=== PATIENT | female | born 1955 | race Caucasian/White ===

== ENCOUNTER → 2020-08-10 | Outpatient (CLI) | payer SELFPAY ==
[~2020-08-10] MED LIST: ATOR40TA75; CLOP75TA2; FERR325T18; FURO20TA2; HYDR25TAB; LOSA100T50; METF500T13
== END ==
LOC: M LABSMTC 09:30
PROVIDERS: ATTEND Anesthesiology
DX: Z01.812 Encounter for preprocedural laboratory examination (principal); Z20.828 Contact with and (suspected) exposure to other viral communicable diseases

== ENCOUNTER 2020-08-14 13:30 | Day surgery (SDC) | payer MEDICAID ==
[~2020-08-14] VITALS: Ht 165.1 cm; Wt 112.5 kg
[~2020-08-14 13:30] MED LIST changes: +NS 1,000 ML IV ONE
[2020-08-14] MEDS ORDERED: propofoL 200 MG/20 ML VIAL As Ordered ONE (16:08)
[2020-08-14] MEDS ORDERED: LIDOCAINE 2% 100MG/5ML SDV (FOR ANES.) As Ordered ONE (16:08)
--- NOTE | 2020-08-14 16:36 | ROOR ---
Patient Name: Francisca Talbert Procedure Date: 08/14/2020 3:31 PM Date of : 1955 Age: 64 Room: [facility] Gender: Female Note Status: Finalized Procedure: Upper GI endoscopy Indications: Iron deficiency anemia Providers: Cameron Hernández MD Referring MD: David Xavier DO Requesting Provider: Medicines: Monitored Anesthesia Care Complications: No immediate complications. Procedure: Pre-Anesthesia Assessment: - Prior to the procedure, a History and Physical was performed, and patient medications and allergies were reviewed. The patient is competent. The risks and benefits of the procedure and the sedation options and risks were discussed with the patient. All questions were answered and informed consent was obtained. Patient identification and proposed procedure were verified by the physician, the nurse and the anesthesiologist in the procedure room. Mental Status Examination: alert and oriented. Airway Examination: normal oropharyngeal airway and neck mobility. Respiratory Examination: clear to auscultation. CV Examination: normal. Prophylactic Antibiotics: The patient does not require prophylactic antibiotics. Prior Anticoagulants: The patient has taken Plavix (clopidogrel), last dose was 1 day prior to procedure. ASA Grade Assessment: III - A patient with severe systemic disease. After reviewing the risks and benefits, the patient was deemed in satisfactory condition to undergo the procedure. The anesthesia plan was to use monitored anesthesia care (MAC). Immediately prior to administration of medications, the patient was re-assessed for adequacy to receive sedatives. The heart rate, respiratory rate, oxygen saturations, blood pressure, adequacy of pulmonary ventilation, and response to care were monitored throughout the procedure. The physical status of the patient was re-assessed after the procedure. The Endoscope was introduced through the mouth, and advanced to the second part of duodenum. The upper GI endoscopy was accomplished without difficulty. The patient tolerated the procedure well. Findings: The examined esophagus was normal. A medium-sized, polypoid, non-circumferential mass with no bleeding and stigmata of recent bleeding was found in the gastric body. One ligature (endoloop) was successfully placed. This was done to prevent bleeding. The polyp was removed with a hot snare. Resection and retrieval were complete. To close a defect after polypectomy, three hemostatic clips were successfully placed. There was no bleeding at the end of the procedure. Verification of patient identification for the specimen was done by the physician and nurse using the patient's name, date and medical record number. Estimated blood loss was minimal. The duodenal bulb and second portion of the duodenum were normal. Impression: - Normal esophagus. 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 Complete removal was accomplished. SKIP. Clips were placed. - Normal duodenal bulb and second portion of the duodenum. Recommendation: - Patient has a contact number available for emergencies. The signs and symptoms of potential delayed complications were discussed with the patient. Return to normal activities tomorrow. Written discharge instructions were provided to the patient. - High fiber diet. - Continue present medications. - Resume Plavix (clopidogrel) at prior dose in 1 week. Refer to primary physician for further adjustment of therapy. - Use Protonix (pantoprazole) 40 mg PO twice daily - to be taken in morning (1/2 hour before breakfast) and at bedtime ( atleast 3 hours after last meal) for 6 weeks. - Await pathology results. - Repeat upper endoscopy in 3 months to check healing, for retreatment and for surveillance based on pathology results. - Return to GI clinic in [facility] (address [address], [address], [place], [address]) in 4 -- 6 weeks. Please call GI clinic @ [phone] for apppointment date and time. - Return to primary care physician. Procedure Code(s): --- Professional --- 53140, 59, Esophagogastroduodenoscopy, flexible, transoral; with control of bleeding, any method 71216, 59, Esophagogastroduodenoscopy, flexible, transoral; with removal of tumor(s), polyp(s), or other lesion(s) by snare technique Diagnosis Code(s): --- Professional --- D13.1, Benign neoplasm of stomach D50.9, Iron deficiency anemia, unspecified CPT copyright 2019 [employer]. All rights reserved. The codes documented in this report are preliminary and upon feed grinder review may be revised to meet current compliance requirements. Cameron Hernández MD Cameron Hernández MD 08/14/2020 4:35:35 PM Electronically signed by Cameron Hernández MD Number of Addenda: 0 Note Initiated On: 08/14/2020 3:31 PM Estimated Blood Loss: Estimated blood loss was minimal.
[2020-08-14 16:50] VITALS: BP 182/90
--- NOTE | 2020-08-14 17:04 | ROOR ---
Patient Name: Francisca Talbert Procedure Date: 08/14/2020 3:32 PM Date of : 1955 Age: 64 Room: [facility] Gender: Female Note Status: Finalized Procedure: Colonoscopy Indications: Iron deficiency anemia Providers: Cameron Hernández MD Referring MD: David Xavier DO Requesting Provider: Medicines: Monitored Anesthesia Care Complications: No immediate complications. Procedure: Pre-Anesthesia Assessment: - Prior to the procedure, a History and Physical was performed, and patient medications and allergies were reviewed. The patient is competent. The risks and benefits of the procedure and the sedation options and risks were discussed with the patient. All questions were answered and informed consent was obtained. Patient identification and proposed procedure were verified by the physician, the nurse and the anesthesiologist in the procedure room. Mental Status Examination: alert and oriented. Airway Examination: normal oropharyngeal airway and neck mobility. Respiratory Examination: clear to auscultation. CV Examination: normal. Prophylactic Antibiotics: The patient does not require prophylactic antibiotics. Prior Anticoagulants: The patient has taken no previous anticoagulant or antiplatelet agents. ASA Grade Assessment: II - A patient with mild systemic disease. After reviewing the risks and benefits, the patient was deemed in satisfactory condition to undergo the procedure. The anesthesia plan was to use monitored anesthesia care (MAC). Immediately prior to administration of medications, the patient was re-assessed for adequacy to receive sedatives. The heart rate, respiratory rate, oxygen saturations, blood pressure, adequacy of pulmonary ventilation, and response to care were monitored throughout the procedure. The physical status of the patient was re-assessed after the procedure. The Colonoscope was introduced through the anus and advanced to the terminal ileum, with identification of the appendiceal orifice and IC valve. The colonoscopy was performed without difficulty. The patient tolerated the procedure well. The quality of the bowel preparation was good. The terminal ileum, ileocecal valve, appendiceal orifice, and rectum were photographed. Scope insertion time was 2 minutes. Scope withdrawal time was 6 minutes. The total duration of the procedure was 12 minutes. Findings: The perianal and digital rectal examinations were normal. Pertinent negatives include normal sphincter tone. The terminal ileum appeared normal. Multiple small and large-mouthed diverticula were found from rectum to ascending colon. There was no evidence of diverticular bleeding. Non-bleeding external and internal hemorrhoids were found during retroflexion. The hemorrhoids were medium-sized. Impression: - The examined portion of the ileum was normal. - Severe diverticulosis from rectum to ascending colon. There was no evidence of diverticular bleeding. - Non-bleeding external and internal hemorrhoids. - No specimens collected. Recommendation: - Patient has a contact number available for emergencies. The signs and symptoms of potential delayed complications were discussed with the patient. Return to normal activities tomorrow. Written discharge instructions were provided to the patient. - High fiber diet. - Continue present medications. - Await pathology results. - Repeat colonoscopy in 10 years for screening purposes. - Return to GI clinic in [facility] (address [address], [address], [place], [facility]) in 4 -- 6 weeks. Please call GI clinic @ [phone] for apppointment date and time. - Follow the recommendations as per the other procedure note. - Return to primary care physician. Procedure Code(s): --- Professional --- 78638, Colonoscopy, flexible; diagnostic, including collection of specimen(s) by brushing or washing, when performed (separate procedure) Diagnosis Code(s): --- Professional --- K64.8, Other hemorrhoids D50.9, Iron deficiency anemia, unspecified K57.30, Diverticulosis of large intestine without perforation or abscess without bleeding CPT copyright 2019 [employer]. All rights reserved. The codes documented in this report are preliminary and upon recreation teacher review may be revised to meet current compliance requirements. Cameron Hernández MD Cameron Hernández MD 08/14/2020 5:04:23 PM Electronically signed by Cameron Hernández MD Number of Addenda: 0 Note Initiated On: 08/14/2020 3:32 PM Estimated Blood Loss: Estimated blood loss was minimal.
== END 2020-08-14 17:04 | disposition home or self-care (01) ==
LOC: M OPP 13:30
PROVIDERS: ATTEND Internal Medicine Gastroenterology
DX: K57.30 Diverticulosis of large intestine without perforation or abscess without bleeding (principal); K64.8 Other hemorrhoids; D50.9 Iron deficiency anemia, unspecified; D13.1 Benign neoplasm of stomach; E11.9 Type 2 diabetes mellitus without complications; Z79.82 Long term (current) use of aspirin; Z79.84 Long term (current) use of oral hypoglycemic drugs; Z79.899 Other long term (current) drug therapy; Z91.040 Latex allergy status; Z86.73 Personal history of transient ischemic attack (TIA), and cerebral infarction without residual deficits

== ENCOUNTER → 2020-11-29 | Outpatient (CLI) | payer MEDICAID ==
[~2020-11-29] MED LIST changes: -ATOR40TA75; +ATOR40TA75 PO; -CLOP75TA2; +CLOP75TA2 PO; -FERR325T18; +FERR325T18 PO; +HYDR-3490 PO; -HYDR25TAB; +JANU25TA PO; -LOSA100T50; +LOSA100T50 PO; -METF500T13; +METF500T13 PO; -NS 1,000 ML IV ONE; +PANT40TA29 PO
== END ==
LOC: M LABSMTC 09:07
PROVIDERS: ATTEND Anesthesiology
DX: Z01.818 Encounter for other preprocedural examination (principal); Z11.52 Encounter for screening for COVID-19

== ENCOUNTER 2020-12-04 08:09 | Day surgery (SDC) | payer MEDICAID ==
[~2020-12-04] VITALS: Ht 165.1 cm; Wt 115.2 kg
[~2020-12-04 08:09] MED LIST changes: +NS 1,000 ML IV ONE
[2020-12-04] MEDS ORDERED: propofoL 200 MG/20 ML VIAL As Ordered ONE ×2 (09:41→09:53)
[2020-12-04] MEDS ORDERED: LIDOCAINE 2% 100MG/5ML SDV (FOR ANES.) As Ordered ONE (09:41)
--- NOTE | 2020-12-04 10:25 | ROOR ---
Patient Name: Francisca Talbert Procedure Date: 12/04/2020 9:40 AM Date of : 1955 Age: 65 Room: [facility] Gender: Female Note Status: Finalized Procedure: Upper GI endoscopy Indications: For therapy of gastric polyps Providers: Cameron Hernández MD Referring MD: David Xavier DO Requesting Provider: Medicines: Monitored Anesthesia Care Complications: No immediate complications. Procedure: Pre-Anesthesia Assessment: - Prior to the procedure, a History and Physical was performed, and patient medications and allergies were reviewed. The patient is competent. The risks and benefits of the procedure and the sedation options and risks were discussed with the patient. All questions were answered and informed consent was obtained. Patient identification and proposed procedure were verified by the physician, the nurse and the anesthesiologist in the procedure room. Mental Status Examination: alert and oriented. Airway Examination: normal oropharyngeal airway and neck mobility. Respiratory Examination: clear to auscultation. CV Examination: normal. Prophylactic Antibiotics: The patient does not require prophylactic antibiotics. Prior Anticoagulants: The patient has taken Plavix (clopidogrel), last dose was 7 days prior to procedure. ASA Grade Assessment: III - A patient with severe systemic disease. After reviewing the risks and benefits, the patient was deemed in satisfactory condition to undergo the procedure. The anesthesia plan was to use monitored anesthesia care (MAC). Immediately prior to administration of medications, the patient was re-assessed for adequacy to receive sedatives. The heart rate, respiratory rate, oxygen saturations, blood pressure, adequacy of pulmonary ventilation, and response to care were monitored throughout the procedure. The physical status of the patient was re-assessed after the procedure. The Endoscope was introduced through the mouth, and advanced to the second part of duodenum. The upper GI endoscopy was accomplished without difficulty. The patient tolerated the procedure well. Findings: The examined esophagus was normal. Three 10 to 15 mm sessile polyps with no bleeding and stigmata of recent bleeding were found on the greater curvature of the stomach and in the gastric antrum. These polyps were removed with a hot snare. Resection and retrieval were complete. To close a defect after polypectomy, two hemostatic clips were successfully placed. There was no bleeding at the end of the procedure. Verification of patient identification for the specimen was done by the physician and nurse using the patient's name and date. Estimated blood loss was minimal. Patchy moderately congested mucosa was found in the gastric antrum. The duodenal bulb and second portion of the duodenum were normal. Impression: - Normal esophagus. - Three gastric polyps. Resected and retrieved. Clips were placed. - Congestive gastropathy. - Normal duodenal bulb and second portion of the duodenum. Recommendation: - Patient has a contact number available for emergencies. The signs and symptoms of potential delayed complications were discussed with the patient. Return to normal activities tomorrow. Written discharge instructions were provided to the patient. - High fiber diet. - Continue present medications. - Use Protonix (pantoprazole) 40 mg PO twice daily - to be taken in morning (1/2 hour before breakfast) and at bedtime ( atleast 3 hours after last meal) for 8 weeks. - Use sucralfate suspension 1 gram PO BID for 4 weeks. - Resume Plavix (clopidogrel) at prior dose tomorrow. Refer to primary physician for further adjustment of therapy. - Await pathology results. - Repeat upper endoscopy in 6 months for surveillance based on pathology results. - Telephone GI clinic for pathology results in 2 weeks. - Return to primary care physician. Procedure Code(s): --- Professional --- 98783, Esophagogastroduodenoscopy, flexible, transoral; with removal of tumor(s), polyp(s), or other lesion(s) by snare technique Diagnosis Code(s): --- Professional --- K31.7, Polyp of stomach and duodenum K31.89, Other diseases of stomach and duodenum CPT copyright 2019 [employer]. All rights reserved. The codes documented in this report are preliminary and upon revenue cycle specialist review may be revised to meet current compliance requirements. Cameron Hernández MD Cameron Hernández MD 12/04/2020 10:24:58 AM Electronically signed by Cameron Hernández MD Number of Addenda: 0 Note Initiated On: 12/04/2020 9:40 AM Estimated Blood Loss: Estimated blood loss was minimal.
[2020-12-04 11:22] VITALS: BP 190/94
== END 2020-12-04 11:24 | disposition home or self-care (01) ==
LOC: M OPP 08:09
PROVIDERS: ATTEND Internal Medicine Gastroenterology
DX: K31.7 Polyp of stomach and duodenum (principal); K31.89 Other diseases of stomach and duodenum; E11.9 Type 2 diabetes mellitus without complications; Z79.82 Long term (current) use of aspirin; Z79.84 Long term (current) use of oral hypoglycemic drugs; Z79.899 Other long term (current) drug therapy; Z87.891 Personal history of nicotine dependence

== ENCOUNTER 2022-06-14 16:49 | Inpatient (IN) | payer MEDICAID, OTHER ==
[~2022-06-14] VITALS: Ht 165.1 cm; Wt 118.5 kg
[~2022-06-14 16:49] MED LIST changes: +LOSA100T45 PO; -LOSA100T50 PO; -NS 1,000 ML IV ONE
[2022-06-14 19:40] LABS: HEMATOCRIT 40.7 % (36.0-47.0); HEMOGLOBIN 12.5 g/dl (12.0-15.5); MEAN CORPUSCULAR HEMOGLOBIN 29.3 pg (27.0-33.0); MEAN CORPUSCULAR HGB CONC 30.7 g/dl (32.0-36.5); MEAN CORPUSCULAR VOLUME 95.3 fl (80.0-96.0); PLATELET COUNT, AUTOMATED 736 10^3/uL (150-450); RED BLOOD COUNT 4.27 10^6/uL (4.00-5.40); WHITE BLOOD COUNT 14.4 10^3/uL (4.0-10.0)
[2022-06-14 19:47] LABS: RSV AMPLIFICATION NEGATIVE (NEGATIVE)
[2022-06-14 19:55] LABS: ACETAMINOPHEN LEVEL < 2.0 UG/ML (10.0-30.0); ALBUMIN 3.4 GM/DL (3.2-5.2); ALT/SGPT 69 U/L (12-78); BILIRUBIN,DIRECT 0.3 MG/DL (0.0-0.2); BILIRUBIN,TOTAL 0.6 MG/DL (0.2-1.0); BLOOD UREA NITROGEN 29 MG/DL (7-18); CALCIUM LEVEL 9.6 MG/DL (8.8-10.2); CARBON DIOXIDE LEVEL 15 MEQ/L (21-32); CHLORIDE LEVEL 109 MEQ/L (98-107); CREATININE FOR GFR 1.09 MG/DL (0.55-1.30); ETHYL ALCOHOL (ETHANOL) < 0.003 % (0.000-0.010); GLOMERULAR FILTRATION RATE 53.8 (>45); GLUCOSE, FASTING 119 MG/DL (70-100); POTASSIUM SERUM 5.1 MEQ/L (3.5-5.1); SALICYLATE LEVEL 2.4 MG/DL (5.0-30.0); SODIUM LEVEL 139 MEQ/L (136-145); TOTAL PROTEIN 7.2 GM/DL (6.4-8.2)
[2022-06-15 01:28] LABS: AMPHETAMINES LEVEL URINE NEGATIVE (NEGATIVE); BARBITURATES URINE NEGATIVE (NEGATIVE); BENZODIAZEPINES URINE NEGATIVE (NEGATIVE); CANNABINOIDS URINE NEGATIVE (NEGATIVE); COCAINE METABOLITE URINE NEGATIVE (NEGATIVE); METHADONE URINE NEGATIVE (NEGATIVE); OPIATES URINE NEGATIVE (NEGATIVE); PHENCYCLIDINE URINE NEGATIVE (NEGATIVE)
[2022-06-15] MEDS ORDERED: TORS20TA2 PO (07:46)
[2022-06-15] MEDS ORDERED: BASA100I SC (07:46)
[2022-06-15] MEDS ORDERED: ASPI-226 PO (07:46)
[2022-06-15] MEDS ORDERED: SPIR-10 PO (07:46)
[2022-06-15] MEDS ORDERED: MAGN500T2 PO (07:46)
[2022-06-15] MEDS ORDERED: TORSEMIDE 20 MG TAB PO SCH (09:00)
[2022-06-15] MEDS ORDERED: SPIRONOLACTONE 12.5MG PER 1/2 TABLET PO SCH (09:00)
[2022-06-15] MEDS ORDERED: FERROUS SULFATE 325MG TAB PO SCH (09:00)
[2022-06-15] MEDS ORDERED: LOSARTAN 50MG TABLET PO SCH (09:00)
[2022-06-15] MEDS ORDERED: CLOPIDOGREL 75 MG TAB PO SCH (09:00)
[2022-06-15] MEDS ORDERED: metFORMIN (GLUCOPHAGE) 500MG TAB PO SCH ×2 (09:00→18:00)
[2022-06-15] MEDS ORDERED: ASPIRIN 81 MG CHEW TABLET PO SCH (09:00)
[2022-06-15] MEDS ORDERED: HOME MED LIST COMPLETE! XX SCH (11:30)
[2022-06-15 11:31] LABS: CALCIUM LEVEL 9.5 MG/DL (8.8-10.2); CREATININE FOR GFR 1.43 MG/DL (0.55-1.30); GLOMERULAR FILTRATION RATE 39.3 (>45); POTASSIUM SERUM 5.5 MEQ/L (3.5-5.1)
[2022-06-15] MEDS ORDERED: NS 1,000 ML IV ONE ×2 (11:50→19:05)
[2022-06-15 12:36] LABS: VENOUS BASE EXCESS -13.2 (-2.0-2.0); VENOUS HCO3 13.5 MEQ/L (23.0-27.0); VENOUS O2 SATURATION 90.2 % (60.0-80.0); VENOUS PARTIAL PRESSURE CO2 33.7 mmHg (38.0-50.0); VENOUS PARTIAL PRESSURE O2 65.8 mmHg (30.0-50.0); VENOUS PH 7.219 UNITS (7.330-7.430); VENOUS STANDARD HCO3 14.1 MEQ/L; VENOUS TOTAL CO2 14.5 MEQ/L (24.0-28.0)
[2022-06-15] MEDS ORDERED: NS 1,000 ML IV SCH (13:40)
[2022-06-15] MEDS ORDERED: GLUCAGON INJ 1MG VIAL SC PRN (13:40)
[2022-06-15] MEDS ORDERED: SOD POLYSTYRENE SULFONATE SUSP 15GM 60ML UD PO ONE (13:40)
[2022-06-15] MEDS ORDERED: GLUCOSE 4GM CHEW TABLET PO PRN (13:40)
[2022-06-15] MEDS ORDERED: DEXTROSE 50% 50 ML SYRINGE IV PRN (13:40)
[2022-06-15] MEDS: HEPARIN SOD (PORCINE) 5000UNITS/ML 1ML VIAL/SYRINGE SC SCH ×2 (14:22→22:41)
[2022-06-15 15:28] LABS: APPEARANCE, URINE MANUAL CLEAR (CLEAR); COLOR, URINE MANUAL YELLOW (YELLOW)
[2022-06-15 15:29] LABS: BILIRUBIN, URINE MANUAL NEGATIVE (NEGATIVE); BLOOD URINE MANUAL NEGATIVE (NEGATIVE); GLUCOSE, URINE (UA) MANUAL NEGATIVE (NEGATIVE); KETONE, URINE MANUAL 2+ mg/dL (NEGATIVE); LEUKOCYTE ESTERASE, URINE MAN NEGATIVE (NEGATIVE); NITRITE, URINE MANUAL NEGATIVE (NEGATIVE); PROTEIN, URINE MANUAL t mg/dL (NEGATIVE); UROBILINOGEN, URINE MANUAL NORMAL (NORMAL)
[2022-06-15 15:44] LABS: SQUAMOUS EPITHELIAL CELL URINE SMALL AMOUNT /hpf (SMALL AMT)
[2022-06-15 15:45] LABS: BACTERIA, URINE MOD AMOUNT; RBC, URINE 0-1 /hpf (0-3)
[2022-06-15 16:23] LABS: OSMOLALITY URINE 396 MOSM/KG (50-1400)
[2022-06-15 16:38] LABS: CHLORIDE,RANDOM URINE 23 MEQ/L; POTASSIUM RANDOM URINE 28.7 MEQ/L; SODIUM,RANDOM URINE < 10 MEQ/L
[2022-06-15] MEDS: D5W/0.9% SODIUM CHLORIDE 1,000 ML IV SCH (16:52)
[2022-06-15 17:06] LABS: VENOUS BASE EXCESS -12.7 (-2.0-2.0); VENOUS HCO3 13.4 MEQ/L (23.0-27.0); VENOUS PARTIAL PRESSURE CO2 31.6 mmHg (38.0-50.0); VENOUS PARTIAL PRESSURE O2 184.2 mmHg (30.0-50.0); VENOUS PH 7.244 UNITS (7.330-7.430); VENOUS STANDARD HCO3 14.5 MEQ/L; VENOUS TOTAL CO2 14.3 MEQ/L (24.0-28.0)
[2022-06-15 17:40] LABS: CALCIUM LEVEL 9.2 MG/DL (8.8-10.2); CREATININE FOR GFR 1.71 MG/DL (0.55-1.30); MAGNESIUM LEVEL 2.1 MG/DL (1.8-2.4)
[2022-06-15] MEDS ORDERED: LEVEMIR (INSULIN DETEMIR) 1 UNITS/0.01ML SC SCH (18:00)
[2022-06-15] MEDS: INSULIN LISPRO (NovoLOG) PER UNIT SC SCH ×2 (18:30→21:00)
[2022-06-15] MEDS ORDERED: ATORVASTATIN 20 MG TAB PO SCH (21:00)
[2022-06-15 21:48] LABS: VENOUS BASE EXCESS -11.8 (-2.0-2.0); VENOUS HCO3 15.7 MEQ/L (23.0-27.0); VENOUS O2 SATURATION 58.9 % (60.0-80.0); VENOUS PARTIAL PRESSURE CO2 41.7 mmHg (38.0-50.0); VENOUS PARTIAL PRESSURE O2 34.3 mmHg (30.0-50.0); VENOUS PH 7.194 UNITS (7.330-7.430); VENOUS STANDARD HCO3 14.6 MEQ/L
[2022-06-15 22:28] LABS: CALCIUM LEVEL 8.7 MG/DL (8.8-10.2); CREATININE FOR GFR 1.81 MG/DL (0.55-1.30); POTASSIUM SERUM 4.8 MEQ/L (3.5-5.1)
[2022-06-15] MEDS: ATORVASTATIN 20 MG TAB PO SCH (22:40)
[2022-06-15] MEDS: MAGNESIUM OXIDE 400MG TAB (MAG-OX) PO SCH (22:40)
[2022-06-15] MEDS: ACETAMINOPHEN TAB 650MG DOSE (2X325MG) PO PRN (23:01)
[2022-06-15] MEDS: LEVEMIR (INSULIN DETEMIR) 1 UNITS/0.01ML SC SCH (23:15)
[2022-06-16] MEDS ORDERED: SODIUM BICARBONATE 8.4% INJ 50 ML SYRINGE IV STA (00:17)
[2022-06-16] MEDS: D5W/0.9% SODIUM CHLORIDE 1,000 ML IV SCH ×3 (04:42→23:17)
[2022-06-16] MEDS: HEPARIN SOD (PORCINE) 5000UNITS/ML 1ML VIAL/SYRINGE SC SCH ×3 (06:18→20:46)
[2022-06-16 07:29] LABS: VENOUS BASE EXCESS -9.7 (-2.0-2.0); VENOUS HCO3 16.2 MEQ/L (23.0-27.0); VENOUS O2 SATURATION 97.1 % (60.0-80.0); VENOUS PARTIAL PRESSURE CO2 35.7 mmHg (38.0-50.0); VENOUS PARTIAL PRESSURE O2 110.4 mmHg (30.0-50.0); VENOUS PH 7.275 UNITS (7.330-7.430); VENOUS STANDARD HCO3 16.6 MEQ/L; VENOUS TOTAL CO2 17.3 MEQ/L (24.0-28.0)
[2022-06-16 07:38] LABS: BASO % 0.4 % (0.0-1.0); EOS # 0.1 10^3/uL (0.0-0.5); EOS % 0.8 % (0.0-3.0); HEMATOCRIT 32.6 % (36.0-47.0); LYMPH # 1.3 10^3/uL (1.5-5.0); LYMPH % 13.1 % (24.0-44.0); MEAN CORPUSCULAR HEMOGLOBIN 29.5 pg (27.0-33.0); MEAN CORPUSCULAR HGB CONC 30.7 g/dl (32.0-36.5); MEAN CORPUSCULAR VOLUME 96.2 fl (80.0-96.0); MONO % 9.8 % (2.0-8.0); NEUTROPHILS # 7.5 10^3/uL (1.5-8.5); NEUTROPHILS % 74.2 % (36.0-66.0); PLATELET COUNT, AUTOMATED 482 10^3/uL (150-450); RED BLOOD COUNT 3.39 10^6/uL (4.00-5.40)
[2022-06-16 08:00] VITALS: BP 103/47
[2022-06-16] MEDS: INSULIN LISPRO (NovoLOG) PER UNIT SC SCH ×4 (08:29→21:00)
[2022-06-16 08:30] LABS: ALBUMIN 2.4 GM/DL (3.2-5.2); BILIRUBIN,TOTAL 0.4 MG/DL (0.2-1.0); CALCIUM LEVEL 8.2 MG/DL (8.8-10.2); CREATININE FOR GFR 1.61 MG/DL (0.55-1.30); GLOMERULAR FILTRATION RATE 34.3 (>45); MAGNESIUM LEVEL 1.9 MG/DL (1.8-2.4); POTASSIUM SERUM 4.4 MEQ/L (3.5-5.1); TOTAL PROTEIN 5.1 GM/DL (6.4-8.2)
[2022-06-16] MEDS: ASPIRIN 81MG ENTERIC TABLET PO SCH (08:30)
[2022-06-16] MEDS: FERROUS SULFATE 325MG TAB PO SCH (08:30)
[2022-06-16] MEDS: CLOPIDOGREL 75 MG TAB PO SCH (08:32)
[2022-06-16] MEDS ORDERED: FLUBLOK(EGG FREE)(QUAD)INFLUENZA VACC 0.5ML SYRINGE 18YRS & OLDER IM.IMMUN ONE (09:00)
[2022-06-16 11:51] VITALS: BP 109/55
[2022-06-16 11:54] VITALS: BP_SYST 109; BP_SYST 99; BP_DIAS 54; BP_DIAS 55
[2022-06-16 13:09] LABS: VENOUS HCO3 16.4 MEQ/L (23.0-27.0); VENOUS O2 SATURATION 97.9 % (60.0-80.0); VENOUS PARTIAL PRESSURE CO2 37.7 mmHg (38.0-50.0); VENOUS PARTIAL PRESSURE O2 143.4 mmHg (30.0-50.0); VENOUS PH 7.256 UNITS (7.330-7.430); VENOUS STANDARD HCO3 16.5 MEQ/L; VENOUS TOTAL CO2 17.5 MEQ/L (24.0-28.0)
[2022-06-16 14:09] LABS: CALCIUM LEVEL 8.5 MG/DL (8.8-10.2); CREATININE FOR GFR 1.51 MG/DL (0.55-1.30); GLOMERULAR FILTRATION RATE 36.9 (>45)
[2022-06-16 16:00] VITALS: BP 99/52
[2022-06-16] MEDS: SODIUM BICARBONATE 325 MG TAB PO SCH ×2 (18:00→20:45)
[2022-06-16] MEDS: ESCITALOPRAM OXALATE 10 MG TAB (LEXAPRO) PO SCH (18:01)
[2022-06-16] MEDS: ACETAMINOPHEN TAB 650MG DOSE (2X325MG) PO PRN ×2 (18:01→20:45)
[2022-06-16] MEDS: ATORVASTATIN 20 MG TAB PO SCH (20:46)
[2022-06-16] MEDS: MAGNESIUM OXIDE 400MG TAB (MAG-OX) PO SCH (20:47)
[2022-06-16] MEDS ORDERED: SODIUM BICARBONATE 325 MG TAB PO SCH (21:00)
[2022-06-16] MEDS: LEVEMIR (INSULIN DETEMIR) 1 UNITS/0.01ML SC SCH (23:15)
[2022-06-17] VITALS: BP 118/58
[2022-06-17 04:00] VITALS: BP 123/58
[2022-06-17] MEDS: HEPARIN SOD (PORCINE) 5000UNITS/ML 1ML VIAL/SYRINGE SC SCH ×2 (06:32→15:07)
[2022-06-17 06:43] LABS: BASO # 0.1 10^3/uL (0.0-0.2); BASO % 0.5 % (0.0-1.0); EOS # 0.1 10^3/uL (0.0-0.5); EOS % 0.5 % (0.0-3.0); HEMATOCRIT 32.7 % (36.0-47.0); HEMOGLOBIN 10.2 g/dl (12.0-15.5); MEAN CORPUSCULAR HEMOGLOBIN 29.1 pg (27.0-33.0); MEAN CORPUSCULAR HGB CONC 31.2 g/dl (32.0-36.5); MEAN CORPUSCULAR VOLUME 93.4 fl (80.0-96.0); MONO # 0.9 10^3/uL (0.0-0.8); NEUTROPHILS # 8.7 10^3/uL (1.5-8.5); NEUTROPHILS % 79.9 % (36.0-66.0); PLATELET COUNT, AUTOMATED 495 10^3/uL (150-450); WHITE BLOOD COUNT 10.9 10^3/uL (4.0-10.0)
[2022-06-17 07:15] LABS: ALBUMIN 2.5 GM/DL (3.2-5.2); BILIRUBIN,TOTAL 0.5 MG/DL (0.2-1.0); CALCIUM LEVEL 8.5 MG/DL (8.8-10.2); CREATININE FOR GFR 1.25 MG/DL (0.55-1.30); GLOMERULAR FILTRATION RATE 45.9 (>45); POTASSIUM SERUM 4.1 MEQ/L (3.5-5.1); TOTAL PROTEIN 5.4 GM/DL (6.4-8.2)
[2022-06-17] MEDS: INSULIN LISPRO (NovoLOG) PER UNIT SC SCH ×4 (07:30→20:12)
[2022-06-17 07:41] VITALS: BP 113/44
[2022-06-17] MEDS: ESCITALOPRAM OXALATE 10 MG TAB (LEXAPRO) PO SCH (08:29)
[2022-06-17] MEDS: ASPIRIN 81MG ENTERIC TABLET PO SCH (08:30)
[2022-06-17] MEDS: CLOPIDOGREL 75 MG TAB PO SCH (08:30)
[2022-06-17] MEDS: FERROUS SULFATE 325MG TAB PO SCH (08:30)
[2022-06-17] MEDS: SODIUM BICARBONATE 325 MG TAB PO SCH ×3 (08:30→20:12)
[2022-06-17] MEDS: ONDANSETRON 4MG 2ML VIAL IV PRN ×2 (12:18→20:17)
[2022-06-17] MEDS: ACETAMINOPHEN TAB 650MG DOSE (2X325MG) PO PRN ×3 (12:19→22:54)
[2022-06-17] MEDS ORDERED: METOPROLOL TART 12.5 MG PER 1/2 TAB PO SCH (18:00)
[2022-06-17 18:44] VITALS: BP 122/54
[2022-06-17 18:49] VITALS: BP 124/57
[2022-06-17 18:50] LABS: FREE T4 1.05 NG/DL (0.76-1.46); THYROID STIMULATING HORMONE 0.325 uIU/ML (0.358-3.740)
[2022-06-17 19:37] VITALS: BP 109/51
[2022-06-17] MEDS: MAGNESIUM OXIDE 400MG TAB (MAG-OX) PO SCH (20:12)
[2022-06-17] MEDS: ATORVASTATIN 20 MG TAB PO SCH (20:12)
[2022-06-17] MEDS: LEVEMIR (INSULIN DETEMIR) 1 UNITS/0.01ML SC SCH (20:15)
[2022-06-17] MEDS ORDERED: APIXABAN 5 MG TAB (ELIQUIS) PO SCH (21:00)
[2022-06-17] MEDS: HEPARIN SOD (PORCINE) 5000UNITS/ML 1ML VIAL/SYRINGE SQ SCH (22:53)
[2022-06-18 04:16] VITALS: BP 107/56
[2022-06-18] MEDS: HEPARIN SOD (PORCINE) 5000UNITS/ML 1ML VIAL/SYRINGE SQ SCH ×3 (06:49→21:24)
[2022-06-18 06:53] LABS: BASO # 0.1 10^3/uL (0.0-0.2); BASO % 0.9 % (0.0-1.0); EOS # 0.2 10^3/uL (0.0-0.5); EOS % 1.8 % (0.0-3.0); HEMATOCRIT 35.5 % (36.0-47.0); HEMOGLOBIN 10.8 g/dl (12.0-15.5); LYMPH # 1.4 10^3/uL (1.5-5.0); LYMPH % 11.5 % (24.0-44.0); MEAN CORPUSCULAR HEMOGLOBIN 28.9 pg (27.0-33.0); MEAN CORPUSCULAR HGB CONC 30.4 g/dl (32.0-36.5); MEAN CORPUSCULAR VOLUME 94.9 fl (80.0-96.0); MONO # 1.4 10^3/uL (0.0-0.8); MONO % 11.4 % (2.0-8.0); NEUTROPHILS # 8.5 10^3/uL (1.5-8.5); NEUTROPHILS % 70.4 % (36.0-66.0); PLATELET COUNT, AUTOMATED 511 10^3/uL (150-450); RED BLOOD COUNT 3.74 10^6/uL (4.00-5.40); WHITE BLOOD COUNT 12.1 10^3/uL (4.0-10.0)
[2022-06-18 07:19] LABS: ALBUMIN 2.6 GM/DL (3.2-5.2); BILIRUBIN,TOTAL 0.5 MG/DL (0.2-1.0); CREATININE FOR GFR 1.4 MG/DL (0.55-1.30); GLOMERULAR FILTRATION RATE 40.3 (>45); MAGNESIUM LEVEL 2.3 MG/DL (1.8-2.4); POTASSIUM SERUM 4.3 MEQ/L (3.5-5.1); TOTAL PROTEIN 5.5 GM/DL (6.4-8.2)
[2022-06-18] MEDS: INSULIN LISPRO (NovoLOG) PER UNIT SC SCH ×4 (07:30→21:00)
[2022-06-18 08:00] VITALS: BP 136/63
[2022-06-18] MEDS: ONDANSETRON 4MG 2ML VIAL IV PRN ×3 (09:20→23:26)
[2022-06-18] MEDS: ASPIRIN 81MG ENTERIC TABLET PO SCH (09:20)
[2022-06-18] MEDS: FERROUS SULFATE 325MG TAB PO SCH (09:20)
[2022-06-18] MEDS: ESCITALOPRAM OXALATE 10 MG TAB (LEXAPRO) PO SCH (09:21)
[2022-06-18] MEDS: CLOPIDOGREL 75 MG TAB PO SCH (09:21)
[2022-06-18] MEDS ORDERED: NS 500 ML IV ONE (10:25)
[2022-06-18] MEDS: ACETAMINOPHEN TAB 650MG DOSE (2X325MG) PO PRN ×2 (14:07→23:26)
[2022-06-18] MEDS: LevoFLOXacin 750 MG TABLET PO SCH (14:30)
[2022-06-18 16:18] VITALS: BP 116/55
[2022-06-18 18:30] VITALS: BP 115/67
[2022-06-18] MEDS: LEVEMIR (INSULIN DETEMIR) 1 UNITS/0.01ML SC SCH (21:00)
[2022-06-18] MEDS: ATORVASTATIN 20 MG TAB PO SCH (21:24)
[2022-06-19] MEDS ORDERED: PROCHLORPERAZINE 10MG 2ML VIAL IV ONE
[2022-06-19] MEDS: RAMELTEON 8 MG TAB (ROZEREM) PO PRN (04:05)
[2022-06-19] MEDS: HEPARIN SOD (PORCINE) 5000UNITS/ML 1ML VIAL/SYRINGE SQ SCH ×3 (05:19→21:56)
[2022-06-19] MEDS: LevoFLOXacin 750 MG TABLET PO SCH (05:19)
[2022-06-19 06:00] VITALS: BP 117/83
[2022-06-19 06:44] LABS: BASO # 0.1 10^3/uL (0.0-0.2); BASO % 0.8 % (0.0-1.0); EOS # 0.3 10^3/uL (0.0-0.5); EOS % 2.6 % (0.0-3.0); HEMATOCRIT 31.9 % (36.0-47.0); HEMOGLOBIN 9.7 g/dl (12.0-15.5); LYMPH # 1.3 10^3/uL (1.5-5.0); LYMPH % 11.9 % (24.0-44.0); MEAN CORPUSCULAR HEMOGLOBIN 29.2 pg (27.0-33.0); MEAN CORPUSCULAR HGB CONC 30.4 g/dl (32.0-36.5); MEAN CORPUSCULAR VOLUME 96.1 fl (80.0-96.0); MONO # 1.3 10^3/uL (0.0-0.8); MONO % 11.8 % (2.0-8.0); NEUTROPHILS # 7.2 10^3/uL (1.5-8.5); NEUTROPHILS % 68.3 % (36.0-66.0); RED BLOOD COUNT 3.32 10^6/uL (4.00-5.40); WHITE BLOOD COUNT 10.6 10^3/uL (4.0-10.0)
[2022-06-19 06:51] LABS: PLATELET COUNT, AUTOMATED 402 10^3/uL (150-450)
[2022-06-19 07:23] LABS: ALBUMIN 2.1 GM/DL (3.2-5.2); BILIRUBIN,TOTAL 0.3 MG/DL (0.2-1.0); CALCIUM LEVEL 8.7 MG/DL (8.8-10.2); CREATININE FOR GFR 1.14 MG/DL (0.55-1.30); GLOMERULAR FILTRATION RATE 51.1 (>45); MAGNESIUM LEVEL 2.2 MG/DL (1.8-2.4); POTASSIUM SERUM 4.1 MEQ/L (3.5-5.1); TOTAL PROTEIN 4.7 GM/DL (6.4-8.2)
[2022-06-19] MEDS: INSULIN LISPRO (NovoLOG) PER UNIT SC SCH ×4 (07:30→21:00)
[2022-06-19] MEDS: FERROUS SULFATE 325MG TAB PO SCH (09:23)
[2022-06-19] MEDS: ESCITALOPRAM OXALATE 10 MG TAB (LEXAPRO) PO SCH (09:23)
[2022-06-19] MEDS: CLOPIDOGREL 75 MG TAB PO SCH (09:23)
[2022-06-19] MEDS: ONDANSETRON 4MG ORAL DISINTEGRATING TAB SL PRN ×2 (09:23→22:38)
[2022-06-19] MEDS: ASPIRIN 81MG ENTERIC TABLET PO SCH (09:23)
[2022-06-19] MEDS: ACETAMINOPHEN TAB 650MG DOSE (2X325MG) PO PRN ×2 (09:23→22:00)
[2022-06-19] MEDS: LEVEMIR (INSULIN DETEMIR) 1 UNITS/0.01ML SC SCH (21:00)
[2022-06-19] MEDS: ATORVASTATIN 20 MG TAB PO SCH (21:56)
[2022-06-19] MEDS: NYSTATIN 100,000 UNITS/GM TOPICAL PWD 15 GM TOP SCH (21:59)
[2022-06-20] MEDS: LevoFLOXacin 750 MG TABLET PO SCH (05:55)
[2022-06-20] MEDS: RAMELTEON 8 MG TAB (ROZEREM) PO PRN ×2 (05:55→21:50)
[2022-06-20] MEDS: HEPARIN SOD (PORCINE) 5000UNITS/ML 1ML VIAL/SYRINGE SQ SCH ×3 (05:55→21:49)
[2022-06-20 06:11] VITALS: BP 111/44
[2022-06-20 06:43] LABS: HEMATOCRIT 31.6 % (36.0-47.0); MEAN CORPUSCULAR HEMOGLOBIN 29.8 pg (27.0-33.0); MEAN CORPUSCULAR HGB CONC 31.6 g/dl (32.0-36.5); PLATELET COUNT, AUTOMATED 353 10^3/uL (150-450); RED BLOOD COUNT 3.36 10^6/uL (4.00-5.40); WHITE BLOOD COUNT 9.7 10^3/uL (4.0-10.0)
[2022-06-20 07:22] LABS: ALBUMIN 2.3 GM/DL (3.2-5.2); BILIRUBIN,TOTAL 0.4 MG/DL (0.2-1.0); CREATININE FOR GFR 1.11 MG/DL (0.55-1.30); GLOMERULAR FILTRATION RATE 52.7 (>45); MAGNESIUM LEVEL 2.1 MG/DL (1.8-2.4); POTASSIUM SERUM 4.4 MEQ/L (3.5-5.1); TOTAL PROTEIN 4.7 GM/DL (6.4-8.2)
[2022-06-20] MEDS: INSULIN LISPRO (NovoLOG) PER UNIT SC SCH ×4 (07:30→21:00)
[2022-06-20 07:47] LABS: ATYPICAL LYMPH 1 % (0-5); LYMPHOCYTES 17 % (16-44); METAMYELOCYTES 3 % (0-0); MONOCYTES 4 % (0-5); MYELOCYTES 5 % (0-0); NEUTROPHILS 65 % (28-66)
[2022-06-20 07:48] LABS: OVALOCYTES 1+; PLATELET ESTIMATE NORMAL (NORMAL)
[2022-06-20 07:49] LABS: TEAR DROP CELLS 1+
[2022-06-20] MEDS: FERROUS SULFATE 325MG TAB PO SCH (09:40)
[2022-06-20] MEDS: ESCITALOPRAM OXALATE 10 MG TAB (LEXAPRO) PO SCH (09:41)
[2022-06-20] MEDS: NYSTATIN 100,000 UNITS/GM TOPICAL PWD 15 GM TOP SCH ×2 (09:41→21:50)
[2022-06-20] MEDS: CLOPIDOGREL 75 MG TAB PO SCH (09:41)
[2022-06-20] MEDS: ASPIRIN 81MG ENTERIC TABLET PO SCH (09:41)
[2022-06-20] MEDS: ONDANSETRON 4MG ORAL DISINTEGRATING TAB SL PRN ×2 (09:53→21:50)
[2022-06-20] MEDS: ACETAMINOPHEN TAB 650MG DOSE (2X325MG) PO PRN ×3 (09:53→21:50)
[2022-06-20] MEDS: LEVEMIR (INSULIN DETEMIR) 1 UNITS/0.01ML SC SCH (21:00)
[2022-06-20] MEDS: ATORVASTATIN 20 MG TAB PO SCH (21:49)
[2022-06-21] MEDS: LevoFLOXacin 750 MG TABLET PO SCH (05:09)
[2022-06-21] MEDS: HEPARIN SOD (PORCINE) 5000UNITS/ML 1ML VIAL/SYRINGE SQ SCH ×3 (05:09→20:57)
[2022-06-21 05:23] VITALS: BP 133/75
[2022-06-21 06:13] LABS: HEMATOCRIT 33.5 % (36.0-47.0); HEMOGLOBIN 10.1 g/dl (12.0-15.5); MEAN CORPUSCULAR HEMOGLOBIN 29.6 pg (27.0-33.0); MEAN CORPUSCULAR HGB CONC 30.1 g/dl (32.0-36.5); MEAN CORPUSCULAR VOLUME 98.2 fl (80.0-96.0); PLATELET COUNT, AUTOMATED 352 10^3/uL (150-450); RED BLOOD COUNT 3.41 10^6/uL (4.00-5.40); WHITE BLOOD COUNT 10.1 10^3/uL (4.0-10.0)
[2022-06-21 06:50] LABS: ALBUMIN 2.3 GM/DL (3.2-5.2); BILIRUBIN,TOTAL 0.3 MG/DL (0.2-1.0); CALCIUM LEVEL 9.1 MG/DL (8.8-10.2); CREATININE FOR GFR 1.21 MG/DL (0.55-1.30); GLOMERULAR FILTRATION RATE 47.7 (>45); MAGNESIUM LEVEL 2.2 MG/DL (1.8-2.4); POTASSIUM SERUM 4.6 MEQ/L (3.5-5.1); TOTAL PROTEIN 5.2 GM/DL (6.4-8.2)
[2022-06-21 07:24] LABS: ATYPICAL LYMPH 3 % (0-5); BASOPHILS 1 % (0-1); EOSINOPHILS 4 % (0-3); LYMPHOCYTES 12 % (16-44); METAMYELOCYTES 2 % (0-0); MONOCYTES 6 % (0-5); MYELOCYTES 1 % (0-0); NEUTROPHILS 70 % (28-66); PLATELET ESTIMATE NORMAL (NORMAL)
[2022-06-21 07:25] LABS: ANISOCYTOSIS 1+; OVALOCYTES 1+; TEAR DROP CELLS 1+
[2022-06-21] MEDS: INSULIN LISPRO (NovoLOG) PER UNIT SC SCH ×4 (07:30→20:55)
[2022-06-21] MEDS: NYSTATIN 100,000 UNITS/GM TOPICAL PWD 15 GM TOP SCH ×2 (09:21→20:59)
[2022-06-21] MEDS: ASPIRIN 81MG ENTERIC TABLET PO SCH (09:21)
[2022-06-21] MEDS: CLOPIDOGREL 75 MG TAB PO SCH (09:21)
[2022-06-21] MEDS: FERROUS SULFATE 325MG TAB PO SCH (09:21)
[2022-06-21] MEDS: ONDANSETRON 4MG ORAL DISINTEGRATING TAB SL PRN ×2 (09:22→20:57)
[2022-06-21] MEDS: ESCITALOPRAM OXALATE 10 MG TAB (LEXAPRO) PO SCH (09:22)
[2022-06-21] MEDS: LEVEMIR (INSULIN DETEMIR) 1 UNITS/0.01ML SC SCH (20:57)
[2022-06-21] MEDS: RAMELTEON 8 MG TAB (ROZEREM) PO PRN (20:58)
[2022-06-21] MEDS: ACETAMINOPHEN TAB 650MG DOSE (2X325MG) PO PRN (20:58)
[2022-06-21] MEDS: ATORVASTATIN 20 MG TAB PO SCH (20:58)
[2022-06-22] MEDS: LevoFLOXacin 750 MG TABLET PO SCH (05:13)
[2022-06-22] MEDS: HEPARIN SOD (PORCINE) 5000UNITS/ML 1ML VIAL/SYRINGE SQ SCH ×3 (05:13→21:35)
[2022-06-22 06:00] VITALS: BP 127/61
[2022-06-22 06:32] LABS: HEMATOCRIT 31.8 % (36.0-47.0); HEMOGLOBIN 9.5 g/dl (12.0-15.5); MEAN CORPUSCULAR HEMOGLOBIN 29.3 pg (27.0-33.0); MEAN CORPUSCULAR HGB CONC 29.9 g/dl (32.0-36.5); MEAN CORPUSCULAR VOLUME 98.1 fl (80.0-96.0); PLATELET COUNT, AUTOMATED 303 10^3/uL (150-450); RED BLOOD COUNT 3.24 10^6/uL (4.00-5.40); WHITE BLOOD COUNT 8.1 10^3/uL (4.0-10.0)
[2022-06-22 07:05] LABS: ALBUMIN 2.3 GM/DL (3.2-5.2); ALT/SGPT 44 U/L (12-78); BILIRUBIN,TOTAL 0.3 MG/DL (0.2-1.0); BLOOD UREA NITROGEN 12 MG/DL (7-18); CARBON DIOXIDE LEVEL 27 MEQ/L (21-32); CHLORIDE LEVEL 106 MEQ/L (98-107); CREATININE FOR GFR 0.95 MG/DL (0.55-1.30); GLOMERULAR FILTRATION RATE > 60.0 (>45); GLUCOSE, FASTING 98 MG/DL (70-100); MAGNESIUM LEVEL 2.1 MG/DL (1.8-2.4); SODIUM LEVEL 137 MEQ/L (136-145)
[2022-06-22] MEDS: INSULIN LISPRO (NovoLOG) PER UNIT SC SCH ×4 (07:30→21:00)
[2022-06-22 07:31] LABS: ATYPICAL LYMPH 1 % (0-5); EOSINOPHILS 2 % (0-3); LYMPHOCYTES 11 % (16-44); METAMYELOCYTES 1 % (0-0); MONOCYTES 11 % (0-5); MYELOCYTES 5 % (0-0); NEUTROPHILS 65 % (28-66)
[2022-06-22 07:33] LABS: OVALOCYTES 1+; POLYCHROMASIA 1+; TEAR DROP CELLS 1+
[2022-06-22 07:34] LABS: PLATELET ESTIMATE NORMAL (NORMAL); STOMATOCYTES 1+
[2022-06-22] MEDS: ESCITALOPRAM OXALATE 10 MG TAB (LEXAPRO) PO SCH (08:45)
[2022-06-22] MEDS: CLOPIDOGREL 75 MG TAB PO SCH (08:45)
[2022-06-22] MEDS: FERROUS SULFATE 325MG TAB PO SCH (08:46)
[2022-06-22] MEDS: ACETAMINOPHEN TAB 650MG DOSE (2X325MG) PO PRN ×2 (08:46→21:37)
[2022-06-22] MEDS: ASPIRIN 81MG ENTERIC TABLET PO SCH (08:46)
[2022-06-22] MEDS: NYSTATIN 100,000 UNITS/GM TOPICAL PWD 15 GM TOP SCH ×2 (12:11→21:36)
[2022-06-22] MEDS: ONDANSETRON 4MG ORAL DISINTEGRATING TAB SL PRN ×2 (15:05→21:35)
[2022-06-22] MEDS: RAMELTEON 8 MG TAB (ROZEREM) PO PRN (21:35)
[2022-06-22] MEDS: SENOKOT S TAB PO SCH (21:35)
[2022-06-22] MEDS: ATORVASTATIN 20 MG TAB PO SCH (21:35)
[2022-06-22] MEDS: LEVEMIR (INSULIN DETEMIR) 1 UNITS/0.01ML SC SCH (21:36)
[2022-06-22] MEDS ORDERED: TORSEMIDE 20 MG TAB PO ONE (23:25)
[2022-06-22] MEDS: traMADol 50 MG TAB PO PRN (23:40)
[2022-06-22 23:42] VITALS: BP 110/44
[2022-06-23] MEDS: traMADol 50 MG TAB PO PRN ×2 (05:27→21:28)
[2022-06-23] MEDS: ONDANSETRON 4MG ORAL DISINTEGRATING TAB SL PRN ×2 (05:27→21:28)
[2022-06-23] MEDS: HEPARIN SOD (PORCINE) 5000UNITS/ML 1ML VIAL/SYRINGE SQ SCH ×3 (05:27→21:28)
[2022-06-23 05:31] VITALS: BP 135/58
[2022-06-23 07:00] LABS: HEMATOCRIT 33.9 % (36.0-47.0); HEMOGLOBIN 10.3 g/dl (12.0-15.5); MEAN CORPUSCULAR HEMOGLOBIN 29.7 pg (27.0-33.0); MEAN CORPUSCULAR HGB CONC 30.4 g/dl (32.0-36.5); MEAN CORPUSCULAR VOLUME 97.7 fl (80.0-96.0); PLATELET COUNT, AUTOMATED 280 10^3/uL (150-450); RED BLOOD COUNT 3.47 10^6/uL (4.00-5.40); WHITE BLOOD COUNT 7.4 10^3/uL (4.0-10.0)
[2022-06-23 07:35] LABS: BLOOD UREA NITROGEN 12 MG/DL (7-18); CALCIUM LEVEL 8.9 MG/DL (8.8-10.2); CARBON DIOXIDE LEVEL 31 MEQ/L (21-32); CHLORIDE LEVEL 103 MEQ/L (98-107); CREATININE FOR GFR 0.97 MG/DL (0.55-1.30); GLOMERULAR FILTRATION RATE > 60.0 (>45); GLUCOSE, FASTING 118 MG/DL (70-100); MAGNESIUM LEVEL 1.8 MG/DL (1.8-2.4); NT-PRO BNP 1286 PG/ML (<125); POTASSIUM SERUM 4.8 MEQ/L (3.5-5.1); SODIUM LEVEL 141 MEQ/L (136-145)
[2022-06-23] MEDS: INSULIN LISPRO (NovoLOG) PER UNIT SC SCH ×4 (08:45→21:00)
[2022-06-23] MEDS: TORSEMIDE 20 MG TAB PO SCH (08:46)
[2022-06-23] MEDS: ASPIRIN 81MG ENTERIC TABLET PO SCH (08:46)
[2022-06-23] MEDS: FERROUS SULFATE 325MG TAB PO SCH (08:46)
[2022-06-23] MEDS: SENOKOT S TAB PO SCH ×2 (08:46→21:27)
[2022-06-23] MEDS: ESCITALOPRAM OXALATE 10 MG TAB (LEXAPRO) PO SCH (08:46)
[2022-06-23] MEDS: CLOPIDOGREL 75 MG TAB PO SCH (08:46)
[2022-06-23] MEDS: NYSTATIN 100,000 UNITS/GM TOPICAL PWD 15 GM TOP SCH ×2 (08:47→21:29)
[2022-06-23] MEDS: ATORVASTATIN 20 MG TAB PO SCH (21:28)
[2022-06-23] MEDS: RAMELTEON 8 MG TAB (ROZEREM) PO PRN (21:28)
[2022-06-23] MEDS: LEVEMIR (INSULIN DETEMIR) 1 UNITS/0.01ML SC SCH (21:29)
[2022-06-24] MEDS: HEPARIN SOD (PORCINE) 5000UNITS/ML 1ML VIAL/SYRINGE SQ SCH ×3 (05:54→21:09)
[2022-06-24] MEDS: traMADol 50 MG TAB PO PRN (05:55)
[2022-06-24] MEDS: INSULIN LISPRO (NovoLOG) PER UNIT SC SCH ×4 (07:30→20:54)
[2022-06-24] MEDS: NYSTATIN 100,000 UNITS/GM TOPICAL PWD 15 GM TOP SCH ×2 (09:13→21:10)
[2022-06-24] MEDS: CLOPIDOGREL 75 MG TAB PO SCH (09:14)
[2022-06-24] MEDS: TORSEMIDE 20 MG TAB PO SCH (09:14)
[2022-06-24] MEDS: FERROUS SULFATE 325MG TAB PO SCH (09:14)
[2022-06-24] MEDS: ESCITALOPRAM OXALATE 10 MG TAB (LEXAPRO) PO SCH (09:14)
[2022-06-24] MEDS: ASPIRIN 81MG ENTERIC TABLET PO SCH (09:14)
[2022-06-24] MEDS: SENOKOT S TAB PO SCH ×2 (09:14→21:08)
[2022-06-24 14:00] VITALS: BP 114/67
[2022-06-24] MEDS: RAMELTEON 8 MG TAB (ROZEREM) PO PRN (21:08)
[2022-06-24] MEDS: ATORVASTATIN 20 MG TAB PO SCH (21:09)
[2022-06-24] MEDS: ONDANSETRON 4MG ORAL DISINTEGRATING TAB SL PRN (21:09)
[2022-06-24] MEDS: LEVEMIR (INSULIN DETEMIR) 1 UNITS/0.01ML SC SCH (21:10)
[2022-06-24] MEDS: ACETAMINOPHEN TAB 650MG DOSE (2X325MG) PO PRN (21:11)
[2022-06-25] MEDS: HEPARIN SOD (PORCINE) 5000UNITS/ML 1ML VIAL/SYRINGE SQ SCH ×3 (05:07→20:49)
[2022-06-25 05:45] VITALS: BP 129/68
[2022-06-25] MEDS: INSULIN LISPRO (NovoLOG) PER UNIT SC SCH ×4 (08:30→20:32)
[2022-06-25] MEDS: SENOKOT S TAB PO SCH ×2 (09:41→20:49)
[2022-06-25] MEDS: ASPIRIN 81MG ENTERIC TABLET PO SCH (09:41)
[2022-06-25] MEDS: ESCITALOPRAM OXALATE 10 MG TAB (LEXAPRO) PO SCH (09:42)
[2022-06-25] MEDS: NYSTATIN 100,000 UNITS/GM TOPICAL PWD 15 GM TOP SCH ×2 (09:42→20:49)
[2022-06-25] MEDS: CLOPIDOGREL 75 MG TAB PO SCH (09:42)
[2022-06-25] MEDS: FERROUS SULFATE 325MG TAB PO SCH (09:42)
[2022-06-25] MEDS: TORSEMIDE 20 MG TAB PO SCH (09:42)
[2022-06-25] MEDS: ONDANSETRON 4MG ORAL DISINTEGRATING TAB SL PRN ×2 (09:47→20:59)
[2022-06-25] MEDS: ACETAMINOPHEN TAB 650MG DOSE (2X325MG) PO PRN ×2 (09:47→20:59)
[2022-06-25] MEDS: LEVEMIR (INSULIN DETEMIR) 1 UNITS/0.01ML SC SCH (20:33)
[2022-06-25] MEDS: ATORVASTATIN 20 MG TAB PO SCH (20:49)
[2022-06-25] MEDS: RAMELTEON 8 MG TAB (ROZEREM) PO PRN (20:59)
[2022-06-26] MEDS: traMADol 50 MG TAB PO PRN ×3 (01:40→21:43)
[2022-06-26] MEDS: HEPARIN SOD (PORCINE) 5000UNITS/ML 1ML VIAL/SYRINGE SQ SCH ×3 (05:29→21:44)
[2022-06-26 05:36] VITALS: BP 121/49
[2022-06-26] MEDS: INSULIN LISPRO (NovoLOG) PER UNIT SC SCH ×4 (07:30→20:27)
[2022-06-26] MEDS: SENOKOT S TAB PO SCH ×2 (08:26→21:43)
[2022-06-26] MEDS: ESCITALOPRAM OXALATE 10 MG TAB (LEXAPRO) PO SCH (08:26)
[2022-06-26] MEDS: TORSEMIDE 20 MG TAB PO SCH (08:26)
[2022-06-26] MEDS: ASPIRIN 81MG ENTERIC TABLET PO SCH (08:26)
[2022-06-26] MEDS: FERROUS SULFATE 325MG TAB PO SCH (08:26)
[2022-06-26] MEDS: NYSTATIN 100,000 UNITS/GM TOPICAL PWD 15 GM TOP SCH ×2 (08:27→21:43)
[2022-06-26] MEDS: CLOPIDOGREL 75 MG TAB PO SCH (08:27)
[2022-06-26] MEDS ORDERED: BISACODYL 10 MG SUPP PR PRN (14:50)
[2022-06-26] MEDS ORDERED: MIRALAX *UNIT DOSE* 17GM PACKET PO ONE (15:30)
[2022-06-26] MEDS: RAMELTEON 8 MG TAB (ROZEREM) PO PRN (21:42)
[2022-06-26] MEDS: ATORVASTATIN 20 MG TAB PO SCH (21:43)
[2022-06-26] MEDS: LEVEMIR (INSULIN DETEMIR) 1 UNITS/0.01ML SC SCH (21:43)
[2022-06-27 05:20] VITALS: BP 135/67
[2022-06-27] MEDS: HEPARIN SOD (PORCINE) 5000UNITS/ML 1ML VIAL/SYRINGE SQ SCH ×3 (05:21→21:24)
[2022-06-27] MEDS: INSULIN LISPRO (NovoLOG) PER UNIT SC SCH ×4 (07:30→21:00)
[2022-06-27] MEDS: FERROUS SULFATE 325MG TAB PO SCH (08:46)
[2022-06-27] MEDS: CLOPIDOGREL 75 MG TAB PO SCH (08:46)
[2022-06-27] MEDS: SENOKOT S TAB PO SCH ×2 (08:46→21:00)
[2022-06-27] MEDS: TORSEMIDE 20 MG TAB PO SCH (08:46)
[2022-06-27] MEDS: ESCITALOPRAM OXALATE 10 MG TAB (LEXAPRO) PO SCH (08:46)
[2022-06-27] MEDS: ASPIRIN 81MG ENTERIC TABLET PO SCH (08:46)
[2022-06-27] MEDS: NYSTATIN 100,000 UNITS/GM TOPICAL PWD 15 GM TOP SCH ×2 (08:46→21:24)
[2022-06-27] MEDS: traMADol 50 MG TAB PO PRN ×2 (13:12→21:25)
[2022-06-27 16:45] VITALS: BP 112/58
[2022-06-27] MEDS: PREPARATION H OINTMENT (HEMORRHOID) TOP PRN (17:28)
[2022-06-27] MEDS: LEVEMIR (INSULIN DETEMIR) 1 UNITS/0.01ML SC SCH (21:23)
[2022-06-27] MEDS: RAMELTEON 8 MG TAB (ROZEREM) PO PRN (21:24)
[2022-06-27] MEDS: ATORVASTATIN 20 MG TAB PO SCH (21:25)
[2022-06-28] MEDS: HEPARIN SOD (PORCINE) 5000UNITS/ML 1ML VIAL/SYRINGE SQ SCH ×3 (05:06→22:00)
[2022-06-28 06:00] VITALS: BP 118/53
[2022-06-28] MEDS: INSULIN LISPRO (NovoLOG) PER UNIT SC SCH ×4 (07:30→21:00)
[2022-06-28] MEDS: ASPIRIN 81MG ENTERIC TABLET PO SCH (09:11)
[2022-06-28] MEDS: CLOPIDOGREL 75 MG TAB PO SCH (09:11)
[2022-06-28] MEDS: ESCITALOPRAM OXALATE 10 MG TAB (LEXAPRO) PO SCH (09:11)
[2022-06-28] MEDS: SENOKOT S TAB PO SCH ×2 (09:11→21:58)
[2022-06-28] MEDS: FERROUS SULFATE 325MG TAB PO SCH (09:11)
[2022-06-28] MEDS: NYSTATIN 100,000 UNITS/GM TOPICAL PWD 15 GM TOP SCH ×2 (09:12→22:00)
[2022-06-28] MEDS: TORSEMIDE 20 MG TAB PO SCH (09:23)
[2022-06-28] MEDS: traMADol 50 MG TAB PO PRN ×2 (09:23→21:59)
[2022-06-28] MEDS: VANICREAM MOISTURIZING SKIN CREAM 113GM TUBE TOP SCH (09:24)
[2022-06-28] MEDS: ATORVASTATIN 20 MG TAB PO SCH (21:59)
[2022-06-28] MEDS: LEVEMIR (INSULIN DETEMIR) 1 UNITS/0.01ML SC SCH (22:00)
[2022-06-28] MEDS: RAMELTEON 8 MG TAB (ROZEREM) PO PRN (22:01)
[2022-06-29] MEDS: HEPARIN SOD (PORCINE) 5000UNITS/ML 1ML VIAL/SYRINGE SQ SCH ×3 (06:02→22:14)
[2022-06-29 06:44] LABS: HEMOGLOBIN A1c 6.9 %
[2022-06-29] MEDS: INSULIN LISPRO (NovoLOG) PER UNIT SC SCH ×4 (07:30→20:21)
[2022-06-29] MEDS: MIRALAX *UNIT DOSE* 17GM PACKET PO SCH (08:47)
[2022-06-29] MEDS: traMADol 50 MG TAB PO PRN ×2 (08:47→22:13)
[2022-06-29] MEDS: CLOPIDOGREL 75 MG TAB PO SCH (08:47)
[2022-06-29] MEDS: ASPIRIN 81MG ENTERIC TABLET PO SCH (08:47)
[2022-06-29] MEDS: ESCITALOPRAM OXALATE 10 MG TAB (LEXAPRO) PO SCH (08:48)
[2022-06-29] MEDS: NYSTATIN 100,000 UNITS/GM TOPICAL PWD 15 GM TOP SCH ×2 (08:48→22:14)
[2022-06-29] MEDS: FERROUS SULFATE 325MG TAB PO SCH (08:48)
[2022-06-29] MEDS: VANICREAM MOISTURIZING SKIN CREAM 113GM TUBE TOP SCH (08:48)
[2022-06-29] MEDS: DOCUSATE SODIUM 100MG CAPSULE PO SCH (08:48)
[2022-06-29] MEDS: SENOKOT S TAB PO SCH ×2 (08:48→22:12)
[2022-06-29] MEDS: TORSEMIDE 20 MG TAB PO SCH ×2 (08:48→17:39)
[2022-06-29] MEDS: ATORVASTATIN 20 MG TAB PO SCH (22:12)
[2022-06-29] MEDS: RAMELTEON 8 MG TAB (ROZEREM) PO PRN (22:12)
[2022-06-29] MEDS: LEVEMIR (INSULIN DETEMIR) 1 UNITS/0.01ML SC SCH (22:13)
[2022-06-30 06:00] VITALS: BP 124/62
[2022-06-30] MEDS: HEPARIN SOD (PORCINE) 5000UNITS/ML 1ML VIAL/SYRINGE SQ SCH ×3 (06:17→20:35)
[2022-06-30 06:51] LABS: BLOOD UREA NITROGEN 21 MG/DL (7-18); CARBON DIOXIDE LEVEL 38 MEQ/L (21-32); CHLORIDE LEVEL 97 MEQ/L (98-107); CREATININE FOR GFR 0.96 MG/DL (0.55-1.30); GLOMERULAR FILTRATION RATE > 60.0 (>45); GLUCOSE, FASTING 97 MG/DL (70-100); POTASSIUM SERUM 5.1 MEQ/L (3.5-5.1); SODIUM LEVEL 138 MEQ/L (136-145)
[2022-06-30] MEDS: INSULIN LISPRO (NovoLOG) PER UNIT SC SCH ×4 (07:30→20:33)
[2022-06-30] MEDS: MIRALAX *UNIT DOSE* 17GM PACKET PO SCH (08:25)
[2022-06-30] MEDS: VANICREAM MOISTURIZING SKIN CREAM 113GM TUBE TOP SCH (08:26)
[2022-06-30] MEDS: DOCUSATE SODIUM 100MG CAPSULE PO SCH (08:26)
[2022-06-30] MEDS: traMADol 50 MG TAB PO PRN ×2 (08:26→20:32)
[2022-06-30] MEDS: NYSTATIN 100,000 UNITS/GM TOPICAL PWD 15 GM TOP SCH ×2 (08:26→20:34)
[2022-06-30] MEDS: SENOKOT S TAB PO SCH ×2 (08:26→20:31)
[2022-06-30] MEDS: TORSEMIDE 20 MG TAB PO SCH ×2 (08:27→15:09)
[2022-06-30] MEDS: CLOPIDOGREL 75 MG TAB PO SCH (08:27)
[2022-06-30] MEDS: ESCITALOPRAM OXALATE 10 MG TAB (LEXAPRO) PO SCH (08:27)
[2022-06-30] MEDS: FERROUS SULFATE 325MG TAB PO SCH (08:27)
[2022-06-30] MEDS: ASPIRIN 81MG ENTERIC TABLET PO SCH (08:27)
[2022-06-30 08:44] LABS: BASO # 0.1 10^3/uL (0.0-0.2); BASO % 0.8 % (0.0-1.0); EOS # 0.3 10^3/uL (0.0-0.5); EOS % 2.9 % (0.0-3.0); HEMATOCRIT 35.7 % (36.0-47.0); HEMOGLOBIN 10.6 g/dl (12.0-15.5); LYMPH # 1.5 10^3/uL (1.5-5.0); LYMPH % 17.9 % (24.0-44.0); MEAN CORPUSCULAR HEMOGLOBIN 29.7 pg (27.0-33.0); MEAN CORPUSCULAR HGB CONC 29.7 g/dl (32.0-36.5); MONO % 11.8 % (2.0-8.0); NEUTROPHILS # 5.5 10^3/uL (1.5-8.5); PLATELET COUNT, AUTOMATED 238 10^3/uL (150-450); RED BLOOD COUNT 3.57 10^6/uL (4.00-5.40); WHITE BLOOD COUNT 8.5 10^3/uL (4.0-10.0)
[2022-06-30] MEDS: LEVEMIR (INSULIN DETEMIR) 1 UNITS/0.01ML SC SCH (20:29)
[2022-06-30] MEDS: ATORVASTATIN 20 MG TAB PO SCH (20:31)
[2022-07-01] MEDS: ACETAMINOPHEN TAB 650MG DOSE (2X325MG) PO PRN (00:23)
[2022-07-01] MEDS: RAMELTEON 8 MG TAB (ROZEREM) PO PRN (00:24)
[2022-07-01] MEDS: HEPARIN SOD (PORCINE) 5000UNITS/ML 1ML VIAL/SYRINGE SQ SCH ×2 (05:13→14:04)
[2022-07-01 06:00] VITALS: BP 122/66
[2022-07-01] MEDS: MIRALAX *UNIT DOSE* 17GM PACKET PO SCH (08:32)
[2022-07-01] MEDS: SENOKOT S TAB PO SCH (08:33)
[2022-07-01] MEDS: DOCUSATE SODIUM 100MG CAPSULE PO SCH (08:33)
[2022-07-01] MEDS: ESCITALOPRAM OXALATE 10 MG TAB (LEXAPRO) PO SCH (08:33)
[2022-07-01] MEDS: ASPIRIN 81MG ENTERIC TABLET PO SCH (08:33)
[2022-07-01] MEDS: TORSEMIDE 20 MG TAB PO SCH (08:33)
[2022-07-01] MEDS: FERROUS SULFATE 325MG TAB PO SCH (08:33)
[2022-07-01] MEDS: CLOPIDOGREL 75 MG TAB PO SCH (08:33)
[2022-07-01] MEDS: INSULIN LISPRO (NovoLOG) PER UNIT SC SCH ×2 (08:33→14:05)
[2022-07-01] MEDS: VANICREAM MOISTURIZING SKIN CREAM 113GM TUBE TOP SCH (08:34)
[2022-07-01] MEDS: PREPARATION H OINTMENT (HEMORRHOID) TOP PRN (08:34)
[2022-07-01] MEDS: NYSTATIN 100,000 UNITS/GM TOPICAL PWD 15 GM TOP SCH (08:34)
[2022-07-01] MEDS: traMADol 50 MG TAB PO PRN (08:50)
[2022-07-01] MEDS: ONDANSETRON 4MG ORAL DISINTEGRATING TAB SL PRN (09:04)
[2022-07-01 09:45] VITALS: BP 144/82
[2022-07-01] MEDS ORDERED: MIRA1POW3 PO (11:49)
[2022-07-01] MEDS ORDERED: SENN-52 PO (11:49)
[2022-07-01] MEDS ORDERED: ACET1TAB55 PO (11:49)
[2022-07-01] MEDS ORDERED: NYST10006 TOP (11:49)
[2022-07-01] MEDS ORDERED: LEXA1TAB PO (11:49)
[2022-07-01] MEDS ORDERED: TRAM50TA2 PO (11:49)
[2022-07-01 13:15] VITALS: BP 140/73
== END 2022-07-01 16:30 | DRG 469 ==
LOC: M ED 16:49 → EDBD 16:49 → M ED INP 06-15 13:37 → M PCU 06-15 19:25 → M MSPAV 06-18 18:21
PROVIDERS: ADMIT Internal Medicine; ATTEND Internal Medicine Nephrology
DX: N17.9 Acute kidney failure, unspecified (principal); E11.10 Type 2 diabetes mellitus with ketoacidosis without coma; E87.21 Acute metabolic acidosis; I11.0 Hypertensive heart disease with heart failure; I50.9 Heart failure, unspecified; R45.851 Suicidal ideations; E11.40 Type 2 diabetes mellitus with diabetic neuropathy, unspecified; E66.01 Morbid (severe) obesity due to excess calories; Z68.41 Body mass index [BMI] 40.0-44.9, adult; E87.5 Hyperkalemia; E11.319 Type 2 diabetes mellitus with unspecified diabetic retinopathy without macular edema; N31.9 Neuromuscular dysfunction of bladder, unspecified; D64.9 Anemia, unspecified; E78.5 Hyperlipidemia, unspecified; F32.A Depression, unspecified; R33.9 Retention of urine, unspecified; H54.8 Legal blindness, as defined in USA; Z86.73 Personal history of transient ischemic attack (TIA), and cerebral infarction without residual deficits; K57.30 Diverticulosis of large intestine without perforation or abscess without bleeding; K64.8 Other hemorrhoids; Z91.040 Latex allergy status; Z88.8 Allergy status to other drugs, medicaments and biological substances; Z79.899 Other long term (current) drug therapy; Z79.82 Long term (current) use of aspirin; Z79.4 Long term (current) use of insulin

== ENCOUNTER 2022-07-05 12:14 | Inpatient (IN) | payer OTHER ==
[~2022-07-05] VITALS: Ht 165.1 cm; Wt 113.6 kg
[~2022-07-05 12:14] MED LIST changes: +ACET1TAB55 PO; +ASPI-226 PO; +BASA100I SC; +LEXA1TAB PO; +MAGN500T2 PO; +MIRA1POW3 PO; +NYST10006 TOP; +SENN-52 PO; +SPIR-10 PO; +TORS20TA2 PO; +TRAM50TA2 PO
[2022-07-05 13:24] LABS: HEMATOCRIT 38.7 % (36.0-47.0); HEMOGLOBIN 11.7 g/dl (12.0-15.5); MEAN CORPUSCULAR HEMOGLOBIN 29.8 pg (27.0-33.0); MEAN CORPUSCULAR HGB CONC 30.2 g/dl (32.0-36.5); MEAN CORPUSCULAR VOLUME 98.7 fl (80.0-96.0); PLATELET COUNT, AUTOMATED 426 10^3/uL (150-450); RED BLOOD COUNT 3.92 10^6/uL (4.00-5.40); WHITE BLOOD COUNT 8.9 10^3/uL (4.0-10.0)
[2022-07-05 13:54] LABS: RSV AMPLIFICATION NEGATIVE (NEGATIVE)
[2022-07-05 14:21] LABS: ACETAMINOPHEN LEVEL 5.4 UG/ML (10.0-30.0); ALBUMIN 2.8 GM/DL (3.2-5.2); ALT/SGPT 43 U/L (12-78); BILIRUBIN,DIRECT 0.2 MG/DL (0.0-0.2); BILIRUBIN,TOTAL 0.5 MG/DL (0.2-1.0); BLOOD UREA NITROGEN 20 MG/DL (7-18); CALCIUM LEVEL 9.1 MG/DL (8.8-10.2); CARBON DIOXIDE LEVEL 35 MEQ/L (21-32); CHLORIDE LEVEL 100 MEQ/L (98-107); CREATININE FOR GFR 1.27 MG/DL (0.55-1.30); ETHYL ALCOHOL (ETHANOL) 0.004 % (0.000-0.010); GLOMERULAR FILTRATION RATE 45.1 (>45); GLUCOSE, FASTING 86 MG/DL (70-100); NT-PRO BNP 267 PG/ML (<125); POTASSIUM SERUM 4.8 MEQ/L (3.5-5.1); SALICYLATE LEVEL < 1.7 MG/DL (5.0-30.0); SODIUM LEVEL 137 MEQ/L (136-145)
[2022-07-05] MEDS ORDERED: ISOVUE-370 76% 100ML VIAL As Ordered ONE (14:30)
[2022-07-05 14:33] LABS: AMPHETAMINES LEVEL URINE NEGATIVE (NEGATIVE); BARBITURATES URINE NEGATIVE (NEGATIVE); BENZODIAZEPINES URINE NEGATIVE (NEGATIVE); CANNABINOIDS URINE NEGATIVE (NEGATIVE); COCAINE METABOLITE URINE NEGATIVE (NEGATIVE); METHADONE URINE NEGATIVE (NEGATIVE); OPIATES URINE NEGATIVE (NEGATIVE); PHENCYCLIDINE URINE NEGATIVE (NEGATIVE)
[2022-07-05] MEDS ORDERED: LOSA100T5 PO (17:35)
[2022-07-05] MEDS ORDERED: ONDA-83 PO (17:37)
[2022-07-05] MEDS ORDERED: HOME MED LIST COMPLETE! XX SCH (17:40)
[2022-07-05] MEDS ORDERED: ATORVASTATIN 20 MG TAB PO ONE (18:15)
[2022-07-05] MEDS: metFORMIN (GLUCOPHAGE) 500MG TAB PO SCH (18:51)
[2022-07-05] MEDS ORDERED: MAGNESIUM OXIDE 400MG TAB (MAG-OX) PO SCH (21:00)
[2022-07-05] MEDS: NYSTATIN 100,000 UNITS/GM TOPICAL PWD 15 GM TOP SCH (22:15)
[2022-07-05] MEDS: SENNA 8.6 MG TAB (SENOKOT) PO SCH (22:15)
[2022-07-05] MEDS: ATORVASTATIN 20 MG TAB PO SCH (22:16)
[2022-07-05] MEDS: LEVEMIR (INSULIN DETEMIR) 1 UNITS/0.01ML SC SCH (22:17)
[2022-07-06] MEDS: SENNA 8.6 MG TAB (SENOKOT) PO SCH ×2 (07:14→20:42)
[2022-07-06] MEDS: ESCITALOPRAM OXALATE 10 MG TAB (LEXAPRO) PO SCH (08:50)
[2022-07-06] MEDS: FERROUS SULFATE 325MG TAB PO SCH (08:50)
[2022-07-06] MEDS: CLOPIDOGREL 75 MG TAB PO SCH (08:50)
[2022-07-06] MEDS: metFORMIN (GLUCOPHAGE) 500MG TAB PO SCH ×2 (08:51→19:15)
[2022-07-06] MEDS: ASPIRIN 81 MG CHEW TABLET PO SCH (08:51)
[2022-07-06] MEDS: LOSARTAN 50MG TABLET PO SCH (08:51)
[2022-07-06] MEDS: SPIRONOLACTONE 12.5MG PER 1/2 TABLET PO SCH (08:57)
[2022-07-06] MEDS: NYSTATIN 100,000 UNITS/GM TOPICAL PWD 15 GM TOP SCH ×2 (08:59→21:00)
[2022-07-06] MEDS ORDERED: TORSEMIDE 20 MG TAB PO SCH (09:00)
[2022-07-06] MEDS ORDERED: ACETAMINOPHEN TAB 650MG DOSE (2X325MG) PO ONE (16:05)
[2022-07-06] MEDS: ATORVASTATIN 20 MG TAB PO SCH (20:47)
[2022-07-06] MEDS: ENOXAPARIN 40MG/0.4ML SYRINGE (J1650 PER 10MG) SC SCH (20:48)
[2022-07-06] MEDS: LEVEMIR (INSULIN DETEMIR) 1 UNITS/0.01ML SC SCH (20:49)
[2022-07-07 06:52] LABS: HEMATOCRIT 37.2 % (36.0-47.0); HEMOGLOBIN 11.4 g/dl (12.0-15.5); MEAN CORPUSCULAR HEMOGLOBIN 29.9 pg (27.0-33.0); MEAN CORPUSCULAR HGB CONC 30.6 g/dl (32.0-36.5); MEAN CORPUSCULAR VOLUME 97.6 fl (80.0-96.0); PLATELET COUNT, AUTOMATED 450 10^3/uL (150-450); RED BLOOD COUNT 3.81 10^6/uL (4.00-5.40); WHITE BLOOD COUNT 7.4 10^3/uL (4.0-10.0)
[2022-07-07 07:17] LABS: CREATININE FOR GFR 1.14 MG/DL (0.55-1.30); GLOMERULAR FILTRATION RATE 51.1 (>45); POTASSIUM SERUM 3.9 MEQ/L (3.5-5.1)
[2022-07-07] MEDS: NYSTATIN 100,000 UNITS/GM TOPICAL PWD 15 GM TOP SCH ×2 (09:00→23:30)
[2022-07-07] MEDS: ENOXAPARIN 40MG/0.4ML SYRINGE (J1650 PER 10MG) SC SCH ×2 (10:17→21:08)
[2022-07-07] MEDS: ASPIRIN 81 MG CHEW TABLET PO SCH (10:17)
[2022-07-07] MEDS: LOSARTAN 50MG TABLET PO SCH (10:18)
[2022-07-07] MEDS: SENNA 8.6 MG TAB (SENOKOT) PO SCH ×2 (10:18→21:00)
[2022-07-07] MEDS: FERROUS SULFATE 325MG TAB PO SCH (10:19)
[2022-07-07] MEDS: SPIRONOLACTONE 12.5MG PER 1/2 TABLET PO SCH (10:20)
[2022-07-07] MEDS: ESCITALOPRAM OXALATE 10 MG TAB (LEXAPRO) PO SCH (10:20)
[2022-07-07] MEDS: TORSEMIDE 20 MG TAB PO SCH (10:20)
[2022-07-07] MEDS: CLOPIDOGREL 75 MG TAB PO SCH (10:21)
[2022-07-07] MEDS: metFORMIN (GLUCOPHAGE) 500MG TAB PO SCH ×2 (10:32→17:37)
[2022-07-07] MEDS: IBUPROFEN 400MG TAB PO PRN ×2 (11:35→17:37)
[2022-07-07 12:49] VITALS: BP 143/78
[2022-07-07 19:58] VITALS: BP 136/74
[2022-07-07] MEDS: ATORVASTATIN 20 MG TAB PO SCH (21:07)
[2022-07-07] MEDS: LEVEMIR (INSULIN DETEMIR) 1 UNITS/0.01ML SC SCH (21:08)
[2022-07-08 05:52] VITALS: BP 136/75
[2022-07-08] MEDS: IBUPROFEN 400MG TAB PO PRN (06:24)
[2022-07-08 06:58] LABS: BASO # 0.1 10^3/uL (0.0-0.2); BASO % 0.9 % (0.0-1.0); EOS # 0.2 10^3/uL (0.0-0.5); EOS % 2.6 % (0.0-3.0); HEMATOCRIT 39.2 % (36.0-47.0); HEMOGLOBIN 11.7 g/dl (12.0-15.5); LYMPH # 1.5 10^3/uL (1.5-5.0); LYMPH % 16.3 % (24.0-44.0); MEAN CORPUSCULAR HEMOGLOBIN 29.5 pg (27.0-33.0); MEAN CORPUSCULAR HGB CONC 29.8 g/dl (32.0-36.5); MEAN CORPUSCULAR VOLUME 98.7 fl (80.0-96.0); MONO # 0.9 10^3/uL (0.0-0.8); MONO % 10.6 % (2.0-8.0); NEUTROPHILS # 6.2 10^3/uL (1.5-8.5); PLATELET COUNT, AUTOMATED 490 10^3/uL (150-450); RED BLOOD COUNT 3.97 10^6/uL (4.00-5.40); WHITE BLOOD COUNT 8.9 10^3/uL (4.0-10.0)
[2022-07-08 07:40] LABS: CALCIUM LEVEL 9.5 MG/DL (8.8-10.2); CREATININE FOR GFR 1.34 MG/DL (0.55-1.30); GLOMERULAR FILTRATION RATE 42.4 (>45); POTASSIUM SERUM 4.8 MEQ/L (3.5-5.1)
[2022-07-08] MEDS: SENNA 8.6 MG TAB (SENOKOT) PO SCH ×2 (09:00→21:00)
[2022-07-08] MEDS ORDERED: SERTRALINE HCL 25 MG TABLET PO SCH (09:00)
[2022-07-08] MEDS: FERROUS SULFATE 325MG TAB PO SCH (09:14)
[2022-07-08 09:15] VITALS: BP 136/75
[2022-07-08] MEDS: CLOPIDOGREL 75 MG TAB PO SCH (09:15)
[2022-07-08] MEDS: TORSEMIDE 20 MG TAB PO SCH (09:15)
[2022-07-08] MEDS: LOSARTAN 50MG TABLET PO SCH (09:15)
[2022-07-08] MEDS: ASPIRIN 81 MG CHEW TABLET PO SCH (09:15)
[2022-07-08] MEDS: metFORMIN (GLUCOPHAGE) 500MG TAB PO SCH (09:15)
[2022-07-08] MEDS: SPIRONOLACTONE 12.5MG PER 1/2 TABLET PO SCH (09:16)
[2022-07-08] MEDS: NYSTATIN 100,000 UNITS/GM TOPICAL PWD 15 GM TOP SCH ×2 (09:17→21:00)
[2022-07-08] MEDS: ENOXAPARIN 40MG/0.4ML SYRINGE (J1650 PER 10MG) SC SCH (09:24)
[2022-07-08] MEDS ORDERED: NS 500 ML IV ONE (11:30)
[2022-07-08] MEDS: ACETAMINOPHEN TAB 650MG DOSE (2X325MG) PO PRN ×3 (13:09→21:37)
[2022-07-08 14:00] VITALS: BP 108/58
[2022-07-08 19:51] VITALS: BP 107/54
[2022-07-08] MEDS: LEVEMIR (INSULIN DETEMIR) 1 UNITS/0.01ML SC SCH (21:37)
[2022-07-08] MEDS: ATORVASTATIN 20 MG TAB PO SCH (21:37)
[2022-07-08] MEDS: HEPARIN SOD (PORCINE) 5000UNITS/ML 1ML VIAL/SYRINGE SQ SCH (21:38)
[2022-07-09] MEDS: HEPARIN SOD (PORCINE) 5000UNITS/ML 1ML VIAL/SYRINGE SQ SCH ×3 (06:12→21:02)
[2022-07-09 06:34] VITALS: BP 136/62
[2022-07-09 07:58] LABS: CALCIUM LEVEL 9.4 MG/DL (8.8-10.2); CREATININE FOR GFR 1.14 MG/DL (0.55-1.30); GLOMERULAR FILTRATION RATE 51.1 (>45); POTASSIUM SERUM 4.5 MEQ/L (3.5-5.1)
[2022-07-09] MEDS: FERROUS SULFATE 325MG TAB PO SCH (08:57)
[2022-07-09] MEDS: SERTRALINE HCL 50 MG TAB PO SCH (08:58)
[2022-07-09] MEDS: SPIRONOLACTONE 12.5MG PER 1/2 TABLET PO SCH (09:00)
[2022-07-09] MEDS: SENNA 8.6 MG TAB (SENOKOT) PO SCH ×2 (09:00→21:00)
[2022-07-09] MEDS: ASPIRIN 81 MG CHEW TABLET PO SCH (09:00)
[2022-07-09] MEDS: CLOPIDOGREL 75 MG TAB PO SCH (09:00)
[2022-07-09] MEDS: NYSTATIN 100,000 UNITS/GM TOPICAL PWD 15 GM TOP SCH ×2 (09:01→21:03)
[2022-07-09 14:00] VITALS: BP 175/85
[2022-07-09] MEDS ORDERED: DEXTROSE 50% 50 ML SYRINGE IV PRN (14:10)
[2022-07-09] MEDS ORDERED: GLUCAGON INJ 1MG VIAL SC PRN (14:10)
[2022-07-09] MEDS ORDERED: GLUCOSE 4GM CHEW TABLET PO PRN (14:10)
[2022-07-09] MEDS: INSULIN LISPRO (NovoLOG) PER UNIT SC SCH ×2 (17:39→21:00)
[2022-07-09] MEDS: ACETAMINOPHEN TAB 650MG DOSE (2X325MG) PO PRN (17:40)
[2022-07-09] MEDS: LIDOCAINE 5% (LIDODERM) PATCH TD SCH (18:55)
[2022-07-09 20:44] VITALS: BP 125/61
[2022-07-09] MEDS: ATORVASTATIN 20 MG TAB PO SCH (21:02)
[2022-07-09] MEDS: LEVEMIR (INSULIN DETEMIR) 1 UNITS/0.01ML SC SCH (21:04)
[2022-07-10] MEDS: HEPARIN SOD (PORCINE) 5000UNITS/ML 1ML VIAL/SYRINGE SQ SCH ×3 (05:45→21:35)
[2022-07-10 05:49] VITALS: BP 141/72
[2022-07-10] MEDS: ACETAMINOPHEN TAB 650MG DOSE (2X325MG) PO PRN ×4 (06:52→21:36)
[2022-07-10 07:04] LABS: BLOOD UREA NITROGEN 27 MG/DL (7-18); CREATININE FOR GFR 0.88 MG/DL (0.55-1.30); GLUCOSE, FASTING 132 MG/DL (70-100)
[2022-07-10 07:05] LABS: CALCIUM LEVEL 9.2 MG/DL (8.8-10.2); CARBON DIOXIDE LEVEL 32 MEQ/L (21-32); CHLORIDE LEVEL 106 MEQ/L (98-107); GLOMERULAR FILTRATION RATE > 60.0 (>45); POTASSIUM SERUM 4.4 MEQ/L (3.5-5.1); SODIUM LEVEL 140 MEQ/L (136-145)
[2022-07-10] MEDS: CLOPIDOGREL 75 MG TAB PO SCH (08:45)
[2022-07-10] MEDS: FERROUS SULFATE 325MG TAB PO SCH (08:45)
[2022-07-10] MEDS: ASPIRIN 81 MG CHEW TABLET PO SCH (08:45)
[2022-07-10] MEDS: SERTRALINE HCL 50 MG TAB PO SCH (08:45)
[2022-07-10] MEDS: INSULIN LISPRO (NovoLOG) PER UNIT SC SCH ×4 (08:46→21:00)
[2022-07-10] MEDS: LIDOCAINE 5% (LIDODERM) PATCH TD SCH ×2 (08:46→21:39)
[2022-07-10] MEDS: SPIRONOLACTONE 12.5MG PER 1/2 TABLET PO SCH (08:46)
[2022-07-10] MEDS: NYSTATIN 100,000 UNITS/GM TOPICAL PWD 15 GM TOP SCH ×2 (08:46→21:36)
[2022-07-10] MEDS: SENNA 8.6 MG TAB (SENOKOT) PO SCH ×2 (08:46→21:00)
[2022-07-10 14:00] VITALS: BP 122/55
[2022-07-10 19:08] VITALS: BP 124/55
[2022-07-10] MEDS: LEVEMIR (INSULIN DETEMIR) 1 UNITS/0.01ML SC SCH (21:35)
[2022-07-10] MEDS: ATORVASTATIN 20 MG TAB PO SCH (21:35)
[2022-07-11] MEDS: HEPARIN SOD (PORCINE) 5000UNITS/ML 1ML VIAL/SYRINGE SQ SCH (05:56)
[2022-07-11 06:05] VITALS: BP 128/57
[2022-07-11 08:58] LABS: BLOOD UREA NITROGEN 24 MG/DL (7-18); CALCIUM LEVEL 9.3 MG/DL (8.8-10.2); CARBON DIOXIDE LEVEL 30 MEQ/L (21-32); CHLORIDE LEVEL 108 MEQ/L (98-107); CREATININE FOR GFR 0.96 MG/DL (0.55-1.30); GLOMERULAR FILTRATION RATE > 60.0 (>45); GLUCOSE, FASTING 245 MG/DL (70-100); POTASSIUM SERUM 5.1 MEQ/L (3.5-5.1); SODIUM LEVEL 141 MEQ/L (136-145)
[2022-07-11] MEDS: SENNA 8.6 MG TAB (SENOKOT) PO SCH (09:00)
[2022-07-11] MEDS: SPIRONOLACTONE 12.5MG PER 1/2 TABLET PO SCH (09:10)
[2022-07-11] MEDS: CLOPIDOGREL 75 MG TAB PO SCH (09:10)
[2022-07-11] MEDS: NYSTATIN 100,000 UNITS/GM TOPICAL PWD 15 GM TOP SCH (09:10)
[2022-07-11] MEDS: SERTRALINE HCL 50 MG TAB PO SCH (09:10)
[2022-07-11] MEDS: INSULIN LISPRO (NovoLOG) PER UNIT SC SCH ×2 (09:10→12:33)
[2022-07-11] MEDS: FERROUS SULFATE 325MG TAB PO SCH (09:10)
[2022-07-11] MEDS: ASPIRIN 81 MG CHEW TABLET PO SCH (09:10)
[2022-07-11] MEDS: ACETAMINOPHEN TAB 650MG DOSE (2X325MG) PO PRN (09:18)
[2022-07-11] MEDS ORDERED: LOSA50TA28 PO (11:49)
[2022-07-11] MEDS ORDERED: NORV5TAB PO (11:49)
[2022-07-11] MEDS ORDERED: TORS10TA3 PO (11:49)
[2022-07-11] MEDS ORDERED: SERT50TA29 PO (11:49)
[2022-07-11] MEDS ORDERED: TORS20TA2 PO (11:55)
[2022-07-12] MEDS ORDERED: amLODIPine 5 MG TAB PO SCH (09:00)
== END 2022-07-11 14:20 | disposition home health service (06) | DRG 756 ==
LOC: M ED 12:14 → M ED INP 07-06 16:41 → ENRESERV 07-07 06:56 → M MS5PR 07-07 12:30
PROVIDERS: ADMIT Internal Medicine; ATTEND Internal Medicine
DX: R45.851 Suicidal ideations (principal); J96.11 Chronic respiratory failure with hypoxia; E11.40 Type 2 diabetes mellitus with diabetic neuropathy, unspecified; I11.0 Hypertensive heart disease with heart failure; I50.32 Chronic diastolic (congestive) heart failure; E87.5 Hyperkalemia; E78.5 Hyperlipidemia, unspecified; F32.A Depression, unspecified; M54.9 Dorsalgia, unspecified; R32 Unspecified urinary incontinence; R33.9 Retention of urine, unspecified; R53.1 Weakness; R53.81 Other malaise; Z74.01 Bed confinement status; Z79.4 Long term (current) use of insulin; Z86.73 Personal history of transient ischemic attack (TIA), and cerebral infarction without residual deficits; Z91.040 Latex allergy status; Z88.8 Allergy status to other drugs, medicaments and biological substances; Z79.82 Long term (current) use of aspirin; Z79.899 Other long term (current) drug therapy